=== PATIENT | male | born 1950 | race Hispanic/Latino ===

== ENCOUNTER 2020-10-01 22:08 | Emergency (ER) | payer OTHER, BC ==
[~2020-10-01] VITALS: Ht 170.2 cm; Wt 90.0 kg
[2020-10-01 22:58] LABS: HEMOGLOBIN 14.2 g/dl (14.0-18.0); IMMATURE GRANULOCYTES 0.4 % (0.0-5.0); MEAN CELL VOLUME 89.4 fL CALC (80.0-100.0); MEAN CORPUSCULAR HGB 29.5 pG CALC (26.0-32.0); NEUT# 6.47 thou/uL (1.82-7.42); RED BLOOD COUNT 4.81 mill/uL (4.70-6.10); RED CELL DISTRI WIDTH 12.8 % (11.5-15.5)
[2020-10-01 23:06] LABS: ALBUMIN 4.4 g/dL (3.2-5.0); ALKALINE PHOSPHATASE 74 u/l (38-126); ANION GAP 13 (6-22 (CALC)); BILIRUBIN, TOTAL 0.6 mg/dL (0.0-1.4); BUN 26 mg/dL (8-23); BUN/CREATININE RATIO 18 (12-20 (CALC)); CARBON DIOXIDE 24 mmol/l (22-30); CHLORIDE 103 mmol/l (95-108); CPK 176 u/l (52-200); CREATININE 1.4 mg/dL (0.7-1.3); GFR 50 ML/MIN (>=60 (CALC)); GFR FOR AFR.AMER. > 60 ML/MIN (>=60 (CALC)); POTASSIUM 3.4 mmol/l (3.5-5.1); SGOT/AST 60 u/l (19-48); SODIUM 136 mmol/l (137-146); TOTAL PROTEIN 7.5 g/dL (6.3-8.2)
[2020-10-02] MEDS ORDERED: KEFLEX500 M1 PO (01:00)
[2020-10-02] MEDS ORDERED: TRAMADOL HCL50 MG PO (01:00)
[2020-10-02 02:30] VITALS: BP 144/82
== END 2020-10-02 02:30 | disposition home or self-care (01) | DRG 605 ==
LOC: ED 22:08
PROVIDERS: Family Medicine
DX: S20.312A Abrasion of left front wall of thorax, initial encounter (principal); S50.812A Abrasion of left forearm, initial encounter; T14.8XXA Other injury of unspecified body region, initial encounter; F17.200 Nicotine dependence, unspecified, uncomplicated; V52.5XXA Driver of pick-up truck or van injured in collision with two- or three-wheeled motor vehicle in traffic accident, initial encounter

== ENCOUNTER 2020-10-02 04:44 | Emergency (ER) | payer OTHER, BC ==
[~2020-10-02] VITALS: Ht 170.2 cm; Wt 90.0 kg
[~2020-10-02 04:44] MED LIST: KEFLEX500 M1 PO; TRAMADOL HCL50 MG PO
[2020-10-02 05:50] VITALS: BP 145/80
== END 2020-10-02 05:50 | disposition home or self-care (01) | DRG 605 ==
LOC: ED 04:44
DX: S40.812A Abrasion of left upper arm, initial encounter (principal); V89.2XXA Person injured in unspecified motor-vehicle accident, traffic, initial encounter